=== PATIENT | female | born 1965 | race Caucasian/White ===

== ENCOUNTER 2016-08-16 21:19 | Emergency (ER) | payer BC, SELFPAY ==
[~2016-08-16 21:19] MED LIST: CALCIUM 600 +1 EA16 PO; DARVOCET-N 1001 EA PO; DARVOCET-N 1001 TAB PO; FIORICET 50-301 EAC1 PO; FIORICET TABLET1 TAB; FIORICET TABLET1 TAB PO; FIORICET1 TAB PO; FOSAMAX70 MG PO; MIDRIN CAPSULE1 CAP; MIDRIN1 CAP PO; MIGRAINE MED PO; MULTIVITAMIN1 TAB PO; MULTIVITAMINS1 EAC6 PO; NORCO 5-325 TA1 EACH PO; NORCO 5/325 TAB1 TAB PO; SKELAXIN800 MG PO; VITAMIN D31000 UNI4 PO; VITAMIN D3400 UNI1 PO; ZOFRAN ODT4 MG PO
[2016-08-16 22:16] LABS: URINE BILIRUBIN MODERATE (NEG); URINE BLOOD LARGE (NEG); URINE GLUCOSE (UA) NEGATIVE (NEG); URINE KETONE NEGATIVE (NEG); URINE LEUKOCYTE ESTERASE POSITIVE (NEG); URINE NITRITE POSITIVE (NEG); URINE PROTEIN MODERATE (NEG)
[2016-08-16 22:20] LABS: URINE APPEARANCE CLOUDY; URINE COLOR ORANGE
[2016-08-16 22:23] LABS: URINE BACTERIA 1+; URINE EPITHELIAL CELLS RARE /[HPF] (0-10); URINE RBC FULL FIELD /[HPF] (0-5); URINE WBC 80-100 /[HPF] (0-5)
[2016-08-16 23:04] LABS: BASO % 0.5 % (0-2); EOS % 3.8 % (0-7); EOSINOPHIL ABSOLUTE COUNT 0.3 tho/cmm (0.0-0.7); HGB-HEMOGLOBIN 15.3 gm/dl (12.0-15.5); IMMATURE GRANULOCYTES ABSOLUTE 0.01 tho/cmm (0-0.03); IMMATURE GRANULOCYTES PERCENT 0.1 % (0-0.3); LYMPH % 28.2 % (20-45); LYMPH ABSOLUTE COUNT 2.4 tho/cmm (0.8-4.5); MCH (MEAN CORPUSCULAR HGB) 30.5 pg (28.0-32.0); MCHC MEAN CORPUSCULAR HGB CONC 34.8 % (32.0-36.0); MCV (MEAN CELL VOLUME) 87.6 fl (82.0-96.0); MEAN PLATELET VOLUME 9.7 cmc (9.4-12.4); MONO % 7.3 % (0-12); MONOCYTE ABSOLUTE COUNT 0.6 tho/cmm (0.0-1.2); NEUTROPHIL ABSOLUTE COUNT 5.1 tho/cmm (1.6-8.0); NEUTROPHIL-AUTOMATED 5.1 tho/cmm (1.6-8.0); NEUTROPHILS % 60.1 % (40-80); PLATELET COUNT 382 tho/cmm (150-450); RED BLOOD COUNT 5.02 mil/cmm (4.00-5.20); RED CELL DISTRIBUTION WIDTH 12.2 % (12.4-16.4); WHITE BLOOD COUNT 8.5 tho/cmm (4.0-10.0)
[2016-08-16 23:19] LABS: ALB/GLOB RATIO 1.1 (0.8-2.0); ALKALINE PHOSPHATASE 102 U/L (33-138); ALT/SGPT 47 U/L (12-78); ANION GAP 16 mmol/L (0-20); AST/SGOT 32 U/L (10-40); BILIRUBIN,TOTAL 0.3 mg/dl (0-1.5); BLOOD UREA NITROGEN 10 mg/dl (6-24); CALCIUM 9.2 mg/dl (8.5-10.5); CARBON DIOXIDE-VENOUS 19 mmol/L (22-32); CHLORIDE 110 mmol/l (96-110); CREATININE 0.57 mg/dl (0.50-1.10); GLUCOSE 82 mg/dL (70-110); SODIUM 141 mmol/L (135-145); eGFR VALUE FOR BLACK >90 mL/Min
[2016-08-17] MEDS ORDERED: CIPRO500 M2 PO (00:35)
== END 2016-08-17 01:00 ==
LOC: EDMED 21:19
PROVIDERS: Nurse Practitioner Family
DX: N30.01 Acute cystitis with hematuria (principal); Z90.710 Acquired absence of both cervix and uterus; Z90.49 Acquired absence of other specified parts of digestive tract; Z90.89 Acquired absence of other organs; Z88.5 Allergy status to narcotic agent; Z88.8 Allergy status to other drugs, medicaments and biological substances
CPT/HCPCS: J1200; J1885; J2175; J2405; J7030